=== PATIENT | female | born 1970 ===

== ENCOUNTER 2017-02-03 15:53 | Emergency (ER) | payer MEDICARE, OTHER ==
[2017-02-03 16:03] VITALS: BP 97/67; PULSE 75; RESP 18; TEMP 98.5; O2SAT 96
--- NOTE | 2017-02-03 17:01 | ED PDOC ---
Upper Extremity Pain/Injury Time Seen by Provider: 02/03/17 16:13 Chief Complaint (Nursing): Upper Extremity Problem/Injury Chief Complaint (Provider): Right hand pain History Per: Patient History/Exam Limitations: no limitations Onset/Duration Of Symptoms: Days (3) Current Symptoms Are (Timing): Still Present Quality: "Pain" Additional History Per: Patient Additional Complaint(s): The patient is a 46yo female, presents to the ED for evaluation of right hand pain since 3 days ago. Pt reports she was lifting grocery bags and felt some pain - she reports noticing some swelling, mostly on her right 3rd digit with difficulty in making a fist. She denies any numbness or tingling and offers no additional medical complaints. Past Medical History Reviewed: Historical Data, Nursing Documentation, Vital Signs Vital Signs: Last Vital Signs Temp 98.5 F 02/03/17 16:00 Pulse 75 02/03/17 16:00 Resp 18 02/03/17 16:00 BP 97/67 L 02/03/17 16:00 Pulse Ox 96 02/03/17 16:00 - Medical History PMH: Asthma, Back Problems, Bipolar Disorder (not on medications), Bronchitis, Migraine Denies: Chronic Kidney Disease - Surgical History Surgical History: Tonsillectomy - Family History Family History: States: Unknown Family Hx - Social History Current smoker - smoking cessation education provided: No Alcohol: None Drugs: Denies - Immunization History Hx Tetanus Toxoid Vaccination: No Hx Influenza Vaccination: No Hx Pneumococcal Vaccination: No - Home Medications Home Medications: Ambulatory Orders Medication Instructions Recorded Ascorbic Acid [Vitamin C W/Adwoa 1 tab PO DAILY 09/04/14 Hips] Cholecalciferol/Docosahexaen1 1 cap PO DAILY 09/04/14 [Vitamin-D [place]-3] Cyanocobalamin [Vitamin B12] 5,000 mcg PO DAILY 09/04/14 Feverfew 1 cap PO TID PRN 09/04/14 Ibuprofen [Motrin Tab] 800 mg PO Q8H PRN 09/04/14 Multivitamin with Minerals 1 tab PO DAILY 09/04/14 [Multi-Vitamin W/Minerals] Valerian Root 1 cap PO HS PRN 09/04/14 Vitamin E 1 tab PO DAILY 09/04/14 Albuterol Sulfate [Albuterol 6 ml IH Q4H #100 jamil 03/14/15 Sulfate 2.5mg/3 ml 0.083%] Famotidine [Pepcid] 20 mg PO HS #20 tab 10/24/14 Methylprednisolone [Medrol Dose 4 mg PO DAILY #21 mg 10/24/14 Pack (21 tabs)] Tramadol HCl [Ultram] 1 tab PO Q6 PRN #15 tab 11/19/14 oxyCODONE/Acetaminophen [Percocet 1 tab PO Q6H PRN #20 tab 02/12/15 5/325 mg Tab] Oxycodone HCl/Acetaminophen 1 tab PO Q6 PRN #12 tab 12/14/15 [Percocet 325 mg-5 mg] Metaxalone [Skelaxin] 800 mg PO TID PRN #10 tablet 12/15/15 Albuterol HFA [Ventolin HFA 90 1 - 2 puff IH Q6 PRN #1 inhaler 05/12/16 mcg/actuation (8 g)] Azithromycin [Zithromax] 250 mg PO QAM #1 pkg 05/12/16 Methylprednisolone [Medrol Dosepak] 4 mg PO ASDIR #1 pkg 05/12/16 Benzonatate [Tessalon Perle] 100 mg PO DAILY #15 capsule 10/08/16 Oseltamivir Phosphate [Tamiflu] 75 mg PO BID 5 Days 10/08/16 predniSONE [predniSONE Tab] 60 mg PO DAILY #9 tab 10/08/16 Tramadol HCl [Ultram] 50 mg PO Q8 #12 tab 02/03/17 - Allergies Allergies/Adverse Reactions: Allergies Allergy/AdvReac Type Severity Reaction Status Date / Time Bleach (Sodium Hypochlorite) Allergy SHORTNESS Verified 02/03/17 16:00 OF BREATH cat dander Allergy SHORTNESS Verified 02/03/17 16:00 OF BREATH dog dander Allergy SHORTNESS Verified 02/03/17 16:00 OF BREATH Gain soap Allergy SHORTNESS Uncoded 06/26/16 20:24 OF BREATH polyurethane Allergy SHORTNESS Uncoded 12/15/15 09:32 OF BREATH seasonal Allergy SHORTNESS Uncoded 12/15/15 09:32 OF BREATH Review of Systems ROS Statement: Except As Marked, All Systems Reviewed And Found Negative Musculoskeletal: Positive for: Hand Pain (right) Neurological: Negative for: Weakness, Numbness Physical Exam - Reviewed Nursing Documentation Reviewed: Yes Vital Signs Reviewed: Yes - Physical Exam Appears: Positive for: Well, Non-toxic, No Acute Distress Head Exam: Positive for: ATRAUMATIC, NORMAL INSPECTION, NORMOCEPHALIC Skin: Positive for: Normal Color Eye Exam: Positive for: Normal appearance Cardiovascular/Chest: Positive for: Regular Rate, Rhythm Respiratory: Negative for: Respiratory Distress Extremity: Positive for: Normal ROM, Tenderness (tenderness noted to 3rd MCP), Capillary Refill (< 2 seconds), Swelling (swelling noted to 3rd MCP) Neurologic/Psych: Positive for: Alert, Oriented. Negative for: Motor/Sensory Deficits - ECG O2 Sat by Pulse Oximetry: 96 (RA) Pulse Ox Interpretation: Normal Medical Decision Making Medical Decision Making: Time: 1638 Impression: Right hand injury r/o fracture Plan: -- XR Right hand Time: 1700 XR shows fracture on 3rd and 4th MCP. Pt to be given pain medications and d/c home with instructions to follow up with a hand surgeon. Scribe Attestation: Documented by Vane Andrews acting as a scribe for LES Sheriff Provider Attestation: All medical record entries made by the Scribe were at my direction and personally dictated by me. I have reviewed the chart and agree that the record accurately reflects my personal performance of the history, physical exam, medical decision making, and the department course for this patient. I have also personally directed, reviewed, and agree with the discharge instructions and disposition. Disposition - Clinical Impression Clinical Impression: Finger fracture - Patient ED Disposition Is Patient to be Admitted: No - Disposition Referrals: Thomas August MD [Medical Doctor] - Disposition: Routine/Home Disposition Time: 12:32 Condition: STABLE Prescriptions: Tramadol HCl [Ultram] 50 mg PO Q8 #12 tab Instructions: Finger Fracture (ED) Forms: [facility] ED School/Work Excuse
--- NOTE | 2017-02-03 17:50 | RAD ---
PROCEDURE: Right Hand Radiographs. HISTORY: trauma attn fith digit COMPARISON: None. FINDINGS: BONES: Normal. No fracture. JOINTS: Normal. No osteoarthritic changes. SOFT TISSUES: Normal. OTHER FINDINGS: None. IMPRESSION: Normal right hand radiographs. If symptoms persist, recommend followup radiographs in 5-10 days as most fractures should become radiographically evident in this timeframe
== END 2017-02-03 17:07 | disposition home or self-care (01) ==
LOC: H.ER 15:53
DX: S62.602A Fracture of unspecified phalanx of right middle finger, initial encounter for closed fracture (principal); X50.9XXA Other and unspecified overexertion or strenuous movements or postures, initial encounter; Y92.89 Other specified places as the place of occurrence of the external cause; F31.9 Bipolar disorder, unspecified; J45.909 Unspecified asthma, uncomplicated

== ENCOUNTER 2018-01-22 00:20 | Emergency (ER) | payer OTHER ==
[2018-01-22 01:21] VITALS: O2SAT 98
--- NOTE | 2018-01-22 01:29 | ED PDOC ---
HPI: Abdomen Time Seen by Provider: 01/22/18 00:59 Chief Complaint (Nursing): Abdominal Pain Chief Complaint (Provider): Abdominal Pain History Per: Patient History/Exam Limitations: no limitations Onset/Duration Of Symptoms: Days (x2) Outside of [place] travel?: No Current Symptoms Are (Timing): Still Present Location Of Pain/Discomfort: LUQ, LLQ Associated Symptoms: Chills. denies: Fever, Nausea, Vomiting, Diarrhea Additional Complaint(s): 47 year old female presents to ED with complaints of left-sided abdominal pain x2 days and has a past medical history of arthritis and diverticular disease. Patient notes speaking to GI specialist, who advised taking an antibiotic the patient had on hand and noted that he would see the patient this morning. Patient notes presenting to the ED after pain progressively worsened. (+) chills , (-) fever, nausea, vomiting, or diarrhea. PCP: Bam Greene GI: [facility] Past Medical History Reviewed: Historical Data, Nursing Documentation, Vital Signs Vital Signs: Last Vital Signs Temp 98.7 F 01/22/18 01:20 Pulse 82 01/22/18 01:20 Resp 20 01/22/18 01:20 BP 130/84 01/22/18 01:20 Pulse Ox 98 01/22/18 03:23 - Medical History PMH: Arthritis, Asthma, Back Problems, Bipolar Disorder (not on medications), Bronchitis, Diverticulitis, Migraine Denies: Chronic Kidney Disease - Surgical History Surgical History: Tonsillectomy Denies: No Surg Hx Other surgeries: radical hysterectomy, right knee construction, right foot surgery - Family History Family History: States: Unknown Family Hx - Social History Current smoker - smoking cessation education provided: No Ex-Smoker (has not smoked in the last 12 months): No Alcohol: None Drugs: Denies - Immunization History Hx Tetanus Toxoid Vaccination: No Hx Influenza Vaccination: No Hx Pneumococcal Vaccination: No - Home Medications Home Medications: Ambulatory Orders Medication Instructions Recorded Ascorbic Acid [Vitamin C W/Adwoa 1 tab PO DAILY 09/04/14 Hips] Cholecalciferol/Docosahexaen1 1 cap PO DAILY 09/04/14 [Vitamin-D [place]-3] Cyanocobalamin [Vitamin B12] 5,000 mcg PO DAILY 09/04/14 Feverfew 1 cap PO TID PRN 09/04/14 Ibuprofen [Motrin Tab] 800 mg PO Q8H PRN 09/04/14 Multivitamin with Minerals 1 tab PO DAILY 09/04/14 [Multi-Vitamin W/Minerals] Valerian Root 1 cap PO HS PRN 09/04/14 Vitamin E 1 tab PO DAILY 09/04/14 Albuterol Sulfate [Albuterol 6 ml IH Q4H #100 jamil 10/24/14 Sulfate 2.5mg/3 ml 0.083%] Famotidine [Pepcid] 20 mg PO HS #20 tab 10/24/14 Methylprednisolone [Medrol Dose 4 mg PO DAILY #21 mg 10/24/14 Pack (21 tabs)] Tramadol HCl [Ultram] 1 tab PO Q6 PRN #15 tab 11/19/14 oxyCODONE/Acetaminophen [Percocet 1 tab PO Q6H PRN #20 tab 02/12/15 5/325 mg Tab] Oxycodone HCl/Acetaminophen 1 tab PO Q6 PRN #12 tab 12/14/15 [Percocet 325 mg-5 mg] Metaxalone [Skelaxin] 800 mg PO TID PRN #10 tablet 12/15/15 Albuterol HFA [Ventolin HFA 90 1 - 2 puff IH Q6 PRN #1 inhaler 05/12/16 mcg/actuation (8 g)] Azithromycin [Zithromax] 250 mg PO QAM #1 pkg 05/12/16 Methylprednisolone [Medrol Dosepak] 4 mg PO ASDIR #1 pkg 05/12/16 Benzonatate [Tessalon Perle] 100 mg PO DAILY #15 capsule 10/08/16 Oseltamivir Phosphate [Tamiflu] 75 mg PO BID 5 Days capsule 10/08/16 predniSONE [predniSONE Tab] 60 mg PO DAILY #9 tab 10/08/16 Tramadol HCl [Ultram] 50 mg PO Q8 #12 tab 02/03/17 Ciprofloxacin/Ciprofloxa HCl 500 mg PO Q12 #14 tab 01/22/18 [Ciprofloxacin] metroNIDAZOLE [Flagyl] 500 mg PO Q12 #14 tab 01/22/18 - Allergies Allergies/Adverse Reactions: Allergies Allergy/AdvReac Type Severity Reaction Status Date / Time Bleach (Sodium Hypochlorite) Allergy SHORTNESS Verified 02/03/17 16:00 OF BREATH cat dander Allergy SHORTNESS Verified 02/03/17 16:00 OF BREATH dog dander Allergy SHORTNESS Verified 02/03/17 16:00 OF BREATH Gain soap Allergy SHORTNESS Uncoded 06/26/16 20:24 OF BREATH polyurethane Allergy SHORTNESS Uncoded 12/15/15 09:32 OF BREATH seasonal Allergy SHORTNESS Uncoded 12/15/15 09:32 OF BREATH Review of Systems ROS Statement: Except As Marked, All Systems Reviewed And Found Negative Constitutional: Positive for: Chills. Negative for: Fever Gastrointestinal: Positive for: Abdominal Pain. Negative for: Nausea, Vomiting , Diarrhea Physical Exam - Reviewed Nursing Documentation Reviewed: Yes Vital Signs Reviewed: Yes - Physical Exam Appears: Positive for: Non-toxic, No Acute Distress Skin: Positive for: Normal Color, Warm, Dry Cardiovascular/Chest: Positive for: Regular Rate, Rhythm. Negative for: Murmur Respiratory: Positive for: Normal Breath Sounds. Negative for: Respiratory Distress Gastrointestinal/Abdominal: Positive for: Soft, Tenderness (mild left-sided abdominal tenderness). Negative for: Normal Exam Back: Positive for: Normal Inspection Extremity: Positive for: Normal ROM. Negative for: Deformity Neurologic/Psych: Positive for: Alert, Oriented. Negative for: Motor/Sensory Deficits - Laboratory Results Result Diagrams: 01/22/18 01:15 01/22/18 01:15 - ECG O2 Sat by Pulse Oximetry: 98 (RA) Pulse Ox Interpretation: Normal Medical Decision Making Medical Decision Makin Initial impression: 47 year old female with left-sided abdominal pain and known diverticuar disease Initial plan: * CTA A/P * Labs * Lipase * UDip * UPreg * Toradol 15mg IVP * UA * Re-eval 0135 Patient notes feeling nauseous * Zofran 4mg IV * Re-eval 0315 CT FINDINGS: Lower thorax: No acute findings. ABDOMEN: Liver: Normal. No mass. Gallbladder and bile ducts: The gallbladder is somewhat contracted with no stones. Pancreas: Normal. No ductal dilation. Spleen: Normal. No splenomegaly. Adrenals: Normal. No mass. Kidneys and ureters: Normal. No hydronephrosis. Stomach and bowel: There is colonic diverticulosis. There is induration in the mid sigmoid which is centered around a specific diverticulum which projects posteriorly and cephalad consistent with a culprit diverticulum. Appendix: Sutures at the cecal tip suggesting prior appendectomy. PELVIS: Bladder: Unremarkable as visualized. Reproductive: Status post hysterectomy. ABDOMEN and PELVIS: Intraperitoneal space: Normal. No free air. No significant fluid collection. Bones/joints: No acute fracture. No dislocation. Soft tissues: Unremarkable. Vasculature: Normal. No abdominal aortic aneurysm. Lymph nodes: Normal. No enlarged lymph nodes. IMPRESSION: 1. Colonic diverticulosis with mild induration in the mid sigmoid centered around a specific diverticulum which projects posteriorly in the low pelvis to the left of midline consistent with mild diverticulitis of a culprit diverticulum which is new since 09/04/2014. 2. Status post hysterectomy. 0345 Upon re-evaluation patient notes improvement in symptoms. Labs reviewed: unremarkable with no clinically significant abnormalities. As patient has a normal WBC count and an appointment later today with GI specialist Dr. Justice (11:00), patient may be discharged after receiving initial IV antibiotics in ED. Dx: diverticulitis Scribe Attestation: Documented by Fatemeh Christian acting as a scribe for Jimbo Kwon MD. Scribe Attestation: All medical record entries made by the Scribe were at my direction and personally dictated by me. I have reviewed the chart and agree that the record accurately reflects my personal performance of the history, physical exam, medical decision making, and the department course for this patient. I have also personally directed, reviewed, and agree with the discharge instructions and disposition. Disposition - Clinical Impression Clinical Impression: Diverticulitis - Patient ED Disposition Is Patient to be Admitted: No - Disposition Referrals: Hector Justice MD [Primary Care Provider] - Disposition: Routine/Home Disposition Time: 03:45 Condition: STABLE Prescriptions: Ciprofloxacin/Ciprofloxa HCl [Ciprofloxacin] 500 mg PO Q12 #14 tab metroNIDAZOLE [Flagyl] 500 mg PO Q12 #14 tab Instructions: Diverticulitis Forms: [employer] (Mongolian)
[2018-01-22 01:40] LABS: BASO % 0.6 % (0.0-2.0); EOS # 0.4 K/uL (0.0-0.7); EOS % 4.3 % (0.0-4.0); LYMPH # 2.6 K/uL (1.0-4.3); LYMPH % 30.8 % (20.0-40.0); MEAN CELL VOLUME 94.4 fl (81.0-99.0); MEAN CORPUSCULAR HEMOGLOBIN 32.4 pg (27.0-31.0); MEAN CORPUSCULAR HGB CONC 34.3 g/dL (33.0-37.0); MEAN PLATELET VOLUME 10.4 fl (7.2-11.7); MONO # 0.4 K/uL (0.0-0.8); MONO % 5.1 % (0.0-10.0); NEUT # 5.1 K/uL (1.8-7.0); NEUT % 59.2 % (50.0-75.0); NRBC % 0.1 % (0.0-0.0); RBC 4.63 Mil/uL (3.80-5.20); RED CELL DISTRIBUTION WIDTH 13.2 % (11.5-14.5); WHITE BLOOD COUNT 8.6 K/uL (4.8-10.8)
[2018-01-22 01:41] LABS: SQUAMOUS EPITHIAL < 1 /hpf (0-5); URINE BACTERIA RARE (<OCC); URINE BILIRUBIN NEGATIVE (NEGATIVE); URINE BLOOD NEGATIVE (NEGATIVE); URINE CLARITY CLEAR (Clear); URINE COLOR COLORLESS (YELLOW); URINE GLUCOSE (UA) NEG (Normal); URINE LEUKOCYTE ESTERASE NEG Leu/uL (Negative); URINE PROTEIN NEGATIVE (NEGATIVE); URINE UROBILINOGEN 0.2-1.0 mg/dL (0.2-1.0)
[2018-01-22 01:48] LABS: ALB/GLOB RATIO 1.4 (1.0-2.1); ALBUMIN 4.3 g/dL (3.5-5.0); ALT/SGPT 40 U/L (9-52); AST/SGOT 28 U/L (14-36); BLOOD UREA NITROGEN 9 mg/dl (7-17); CALCIUM 10.2 mg/dL (8.4-10.2); GFR AFRICAN-AMERICAN > 60; GFR NON-AFRICAN AMERICAN > 60; LIPASE 39 U/L (23-300)
[2018-01-22] MEDS ORDERED: Iohexol 300 100 ML IJ ONE (01:54)
[2018-01-22] MEDS ORDERED: Sodium Chloride 0.9% 50 ML IV ONE (01:54)
[2018-01-22] MEDS ORDERED: metroNIDAZOLE 500mg/100ml NS 100 ML IVPB STA (03:23)
[2018-01-22] MEDS ORDERED: Ciprofloxacin 400mg/200ml D5W 400 MG/200 ML BAG IV STA (03:23)
[2018-01-22] MEDS ORDERED: Ciprofloxacin 400mg/200ml D5W 400 MG/200 ML BAG IVPB ONE (03:28)
[2018-01-22] MEDS ORDERED: metroNIDAZOLE 500mg/100ml NS 100 ML IVPB ONE (04:25)
[2018-01-22 05:49] VITALS: BP 103/61; PULSE 74; RESP 16; TEMP 97.5
--- NOTE | 2018-01-22 09:33 | CT ---
PROCEDURE: CT Abdomen and Pelvis with contrast HISTORY: abd pain; hx diverticular disease COMPARISON: CT scan of the abdomen and pelvis dated 09/04/2014. TECHNIQUE: Contrast dose: 90 mL Omnipaque 300 Radiation dose: Total exam DLP = 567.7 mGy-cm. This CT exam was performed using one or more of the following dose reduction techniques: Automated exposure control, adjustment of the mA and/or kV according to patient size, and/or use of iterative reconstruction technique. FINDINGS: LOWER THORAX: Unremarkable. LIVER: Hepatic steatosis. No gross lesion or ductal dilatation. GALLBLADDER AND BILE DUCTS: Unremarkable. PANCREAS: Unremarkable. No gross lesion or ductal dilatation. SPLEEN: Unremarkable. ADRENALS: Unremarkable. No mass. KIDNEYS AND URETERS: Unremarkable. No hydronephrosis. No solid mass. VASCULATURE: Unremarkable. No aortic aneurysm. BOWEL: Sigmoid diverticulosis with peridiverticular stranding. No obstruction. No gross mural thickening. APPENDIX: Prior appendectomy. PERITONEUM: Unremarkable. No free fluid. No free air. LYMPH NODES: Unremarkable. No enlarged lymph nodes. BLADDER: Unremarkable. REPRODUCTIVE: Prior hysterectomy. BONES: No acute fracture. L5-S1 degenerative changes. OTHER FINDINGS: None. IMPRESSION: Acute sigmoid diverticulitis. No free air or adjacent fluid collection.
== END 2018-01-22 05:48 | disposition home or self-care (01) ==
LOC: H.ER 00:20
DX: K57.32 Diverticulitis of large intestine without perforation or abscess without bleeding (principal); F31.9 Bipolar disorder, unspecified; J45.909 Unspecified asthma, uncomplicated; Z87.891 Personal history of nicotine dependence; Z90.710 Acquired absence of both cervix and uterus
CPT/HCPCS: 74177; 80053; 81003; 81025; 83690; 85025; 87040; 96365; 96367; 96375; 99284; J0744; J1885; J2270; J2405; Q9967

== ENCOUNTER 2018-07-28 22:53 | Emergency (ER) | payer OTHER ==
[2018-07-28] MEDS ORDERED: Sodium Chloride 0.9% 1,000 ML IV STA (23:20)
[2018-07-28 23:59] LABS: BASO % 0.2 % (0.0-2.0); EOS # 0.1 K/uL (0.0-0.7); EOS % 0.5 % (0.0-4.0); HEMOGLOBIN 13.6 g/dL (12.0-16.0); LYMPH # 1.5 K/uL (1.0-4.3); LYMPH % 12.6 % (20.0-40.0); MEAN CELL VOLUME 93.1 fl (81.0-99.0); MEAN CORPUSCULAR HGB CONC 33.3 g/dL (33.0-37.0); MEAN PLATELET VOLUME 10.1 fl (7.2-11.7); MONO # 0.6 K/uL (0.0-0.8); MONO % 5.5 % (0.0-10.0); NEUT # 9.5 K/uL (1.8-7.0); NEUT % 81.2 % (50.0-75.0); NRBC % 0.1 % (0.0-0.0); RBC 4.37 Mil/uL (3.80-5.20); RED CELL DISTRIBUTION WIDTH 13.1 % (11.5-14.5); WHITE BLOOD COUNT 11.7 K/uL (4.8-10.8)
[2018-07-29 00:02] LABS: SQUAMOUS EPITHIAL < 1 /hpf (0-5); URINE BACTERIA RARE (<OCC); URINE BILIRUBIN NEGATIVE (NEGATIVE); URINE BLOOD NEGATIVE (NEGATIVE); URINE CLARITY SLIGHTY-CLOUDY (Clear); URINE COLOR YELLOW (YELLOW); URINE GLUCOSE (UA) NEG (NEGATIVE); URINE LEUKOCYTE ESTERASE NEG Leu/uL (Negative); URINE PROTEIN NEGATIVE (NEGATIVE); URINE UROBILINOGEN 0.2-1.0 mg/dL (0.2-1.0)
--- NOTE | 2018-07-29 00:03 | ED PDOC ---
HPI: Abdomen Time Seen by Provider: 07/28/18 23:06 Chief Complaint (Nursing): Abdominal Pain Chief Complaint (Provider): Abdominal Pain History Per: Patient History/Exam Limitations: no limitations Onset/Duration Of Symptoms: Days (x3) Current Symptoms Are (Timing): Still Present Location Of Pain/Discomfort: LLQ Associated Symptoms: Constipation. denies: Fever, Diarrhea Additional Complaint(s): 47 year old female, with a past medical history of diverticulosis, presents to the ED complaining of left lower quadrant pain which she developed on Sunday. Patient reports that she also felt constipated and also vomited. She contacted her GI doctor, Dr. Lynne, who advised her to use fleet enema. Patient, however, felt uncomfortable doing it. Last bowel movement was today which was small and hard. Denies melena, hematochezia, fever, diarrhea, or hematemesis. Past Medical History Reviewed: Historical Data, Nursing Documentation, Vital Signs Vital Signs: Last Vital Signs Temp 98.9 F 07/28/18 22:58 Pulse 97 H 07/28/18 22:58 Resp 16 07/28/18 22:58 BP 154/78 H 07/28/18 22:58 Pulse Ox 97 07/28/18 22:58 - Medical History PMH: Arthritis, Asthma, Back Problems, Bipolar Disorder (not on medications), Bronchitis, Diverticulitis (Diverticulosis), Migraine Denies: Chronic Kidney Disease - Surgical History Surgical History: Tonsillectomy - Family History Family History: States: Unknown Family Hx - Immunization History Hx Tetanus Toxoid Vaccination: No Hx Influenza Vaccination: No Hx Pneumococcal Vaccination: No - Home Medications Home Medications: Ambulatory Orders Medication Instructions Recorded Ascorbic Acid [Vitamin C W/Adwoa 1 tab PO DAILY 09/04/14 Hips] Cholecalciferol/Docosahexaen1 1 cap PO DAILY 09/04/14 [Vitamin-D [place]-3] Cyanocobalamin [Vitamin B12] 5,000 mcg PO DAILY 09/04/14 Ibuprofen [Motrin Tab] 800 mg PO Q8H PRN 09/04/14 Multivitamin with Minerals 1 tab PO DAILY 09/04/14 [Multi-Vitamin W/Minerals] RX: Feverfew 1 cap PO TID PRN 09/04/14 RX: Valerian Root 1 cap PO HS PRN 09/04/14 RX: Vitamin E 1 tab PO DAILY 09/04/14 Albuterol Sulfate [Albuterol 6 ml IH Q4H #100 jamil 10/24/14 Sulfate 2.5mg/3 ml 0.083%] Famotidine [Pepcid] 20 mg PO HS #20 tab 10/24/14 Methylprednisolone [Medrol Dose 4 mg PO DAILY #21 mg 10/24/14 Pack (21 tabs)] Tramadol HCl [Ultram] 1 tab PO Q6 PRN #15 tab 11/19/14 oxyCODONE/Acetaminophen [Percocet 1 tab PO Q6H PRN #20 tab 02/12/15 5/325 mg Tab] Oxycodone HCl/Acetaminophen 1 tab PO Q6 PRN #12 tab 12/14/15 [Percocet 325 mg-5 mg] Metaxalone [Skelaxin] 800 mg PO TID PRN #10 tablet 12/15/15 Azithromycin [Zithromax] 250 mg PO QAM #1 pkg 05/12/16 Methylprednisolone [Medrol Dosepak] 4 mg PO ASDIR #1 pkg 05/12/16 RX: Albuterol HFA [Ventolin HFA 90 1 - 2 puff IH Q6 PRN #1 inhaler 05/12/16 mcg/actuation (8 g)] Benzonatate [Tessalon Perle] 100 mg PO DAILY #15 capsule 10/08/16 Oseltamivir Phosphate [Tamiflu] 75 mg PO BID 5 Days capsule 10/08/16 RX: predniSONE [predniSONE Tab] 60 mg PO DAILY #9 tab 10/08/16 Tramadol HCl [Ultram] 50 mg PO Q8 #12 tab 02/03/17 Ciprofloxacin/Ciprofloxa HCl 500 mg PO Q12 #14 tab 01/22/18 [Ciprofloxacin] metroNIDAZOLE [Flagyl] 500 mg PO Q12 #14 tab 01/22/18 Dicyclomine [Bentyl] 1 tab PO TID PRN #10 tab 07/29/18 RX: Ciprofloxacin [Cipro] 500 mg PO BID #14 tab 07/29/18 metroNIDAZOLE [Flagyl] 500 mg PO TID #21 tab 07/29/18 - Allergies Allergies/Adverse Reactions: Allergies Allergy/AdvReac Type Severity Reaction Status Date / Time Bleach (Sodium Hypochlorite) Allergy SHORTNESS Verified 02/03/17 16:00 OF BREATH cat dander Allergy SHORTNESS Verified 02/03/17 16:00 OF BREATH dog dander Allergy SHORTNESS Verified 02/03/17 16:00 OF BREATH Gain soap Allergy SHORTNESS Uncoded 06/26/16 20:24 OF BREATH polyurethane Allergy SHORTNESS Uncoded 12/15/15 09:32 OF BREATH seasonal Allergy SHORTNESS Uncoded 12/15/15 09:32 OF BREATH Review of Systems ROS Statement: Except As Marked, All Systems Reviewed And Found Negative Constitutional: Negative for: Fever Gastrointestinal: Positive for: Vomiting, Abdominal Pain (LLQ), Constipation. Negative for: Diarrhea, Melena, Hematochezia, Hematemesis Physical Exam - Reviewed Nursing Documentation Reviewed: Yes Vital Signs Reviewed: Yes - Physical Exam Appears: Positive for: In Acute Distress (Mild painful distress) Head Exam: Positive for: ATRAUMATIC, NORMOCEPHALIC Skin: Positive for: Normal Color, Warm, Dry Eye Exam: Positive for: Normal appearance Neck: Positive for: Normal, Painless ROM Cardiovascular/Chest: Positive for: Regular Rate, Rhythm Respiratory: Positive for: Normal Breath Sounds. Negative for: Wheezing, Respiratory Distress Gastrointestinal/Abdominal: Positive for: Tenderness (minimal LLQ tenderness) Extremity: Positive for: Normal ROM Neurologic/Psych: Positive for: Alert, Oriented. Negative for: Motor/Sensory Deficits - Laboratory Results Result Diagrams: 07/28/18 23:35 07/28/18 23:35 - ECG O2 Sat by Pulse Oximetry: 97 (RA) Pulse Ox Interpretation: Normal Medical Decision Making Medical Decision Making: Initial Plan: --CMP --Lipase stat --ED urine --CBC --X-ray obstructive series --Sodium chloride 1000mL IV --Toradol 15mg IV --Zofran 4mg IV --Urinalysis 00:37 X-ray obstructive series Findings: Mild amount of fecal residue in the large bowel. Normal visualized lung bases. There is an otherwise unremarkable bowel gas pattern. There is no demonstrated free abdominal air. Normal visualized liver. Normal visualized spleen. Normal visualized kidneys. The soft tissue structures of the pelvis are unremarkable. Normal visualized osseous structures. The lungs are expanded. There is no demonstrated parenchymal abnormality. There is no demonstrated pleural abnormality. Normal heart and pericardium. Normal mediastinum and joshua. Normal visualized pulmonary arteries. Normal visualized aortic arch and descending thoracic aorta. Normal visualized thoracic spine. Normal visualized ribs, clavicles, and shoulders. There is no demonstrated abnormality of the visualized soft tissue structures of the upper abdomen. Impression: Mild amount of residue in the large bowels. 0045 On re-evaluation, pt. reports pain has improved but still present. Pt. still appears to be in painful distress. Pt. informed of plan and agrees with care. CT abd/pelvis W/ IV contrast, morphine 4mg IV ordered. 02:21 CT abd/pelvis COMMENTS: Interval appearance of diffuse acute sigmoid diverticulitis. Associated perisigmoid phlegmonous changes. Interval appearance of mild diffuse thickening of the bladder. The liver is enlarged with decreased attenuation without mass or defect. There is no intra or extrahepatic biliary ductal dilatation. The spleen is normal. The gallbladder is within normal limits. The pancreas is of normal contour and attenuation characteristics. There is no evidence of adrenal mass. Both kidneys demonstrate prompt and equal nephrograms. The kidneys are normal in size, shape and configuration. There is no evidence of renal or ureteral mass. No renal or ureteral calculi are identified. There is no hydroureter or hydronephrosis. No evidence for appendicitis. No evidence for small or large bowel obstruction. There is no evidence of abdominal ascites or lymphadenopathy. There is no evidence of intrinsic or extrinsic bladder mass. There is no pelvic ascites or lymphadenopathy. Images of the lung bases show no evidence of pleural or parenchymal mass. There are no pleural effusions. The bony structures are free of lytic or blastic lesions. IMPRESSION: Interval appearance of diffuse acute sigmoid diverticulitis. Associated perisigmoid phlegmonous changes. No perforation or abscess formation. Interval appearance of mild diffuse thickening of the bladder. Pt. informed of results. Agrees with plan and care. States she has an appointment with Dr. Lynne on Sunday. Advised to f/u with Dr. Lynne as schedule d but is to return to ED immediately if symptoms worsen. Cipro IV, flagyl IV, blood culture x 2 ordered. Scribe Attestation: Documented by Dell Navarro acting as a scribe for Kory SALDANA. Provider Scribe Attestation: All medical record entries made by the Scribe were at my direction and personally dictated by me. I have reviewed the chart and agree that the record accurately reflects my personal performance of the history, physical exam, medical decision making, and the department course for this patient. I have also personally directed, reviewed, and agree with the discharge instructions and disposition. Disposition - Clinical Impression Clinical Impression: Diverticulitis - Patient ED Disposition Is Patient to be Admitted: No - Disposition Disposition: Routine/Home Disposition Time: 02:26 Condition: IMPROVED Additional Instructions: FOLLOW UP WITH DR. LYNNE FOR FURTHER EVALUATION RETURN TO ED IMMEDIATELY IF SYMPTOMS WORSEN SIX[place] S[place], thank you for letting us take care of you today. Your provider was Porfirio Tomlin MD and you were treated for VOMITING. The emergency medical care you received today was directed at your acute symptoms. If you were prescribed any medication, please fill it and take as directed. It may take several days for your symptoms to resolve. Return to the Emergency Department if your symptoms worsen, do not improve, or if you have any other problems. Please contact your doctor or call one of the physicians/clinics you have been referred to that are listed on the Patient Visit Information form that is included in your discharge packet. Bring any paperwork you were given at discharge with you along with any medications you are taking to your follow up visit. Our treatment cannot replace ongoing medical care by a primary care provider outside of the emergency department. Thank you for allowing the [facility] team to be part of your care today. If you had an X-Ray or CT scan: A Radiologist will review the ED reading if any change in treatment is needed we will contact you. If you had a blood, urine, or wound culture: It will take several days for the results, if any change in treatment is needed we will contact you. If you had an STI test: It will take 48 hours for the results. Please call after 1 week if you have not heard back. Prescriptions: RX: Ciprofloxacin [Cipro] 500 mg PO BID #14 tab Dicyclomine [Bentyl] 1 tab PO TID PRN #10 tab PRN Reason: abdominal pain metroNIDAZOLE [Flagyl] 500 mg PO TID #21 tab Instructions: Diverticulitis (DC) Forms: [facility] (Portuguese) Print Language: OCCITAN
[2018-07-29 00:05] LABS: ALB/GLOB RATIO 1.4 (1.0-2.1); ALBUMIN 4.2 g/dL (3.5-5.0); ALT/SGPT 35 U/L (9-52); AST/SGOT 21 U/L (14-36); BLOOD UREA NITROGEN 6 mg/dl (7-17); CALCIUM 9.2 mg/dL (8.4-10.2); GFR NON-AFRICAN AMERICAN > 60; LIPASE 39 U/L (23-300)
[2018-07-29] MEDS ORDERED: Sodium Chloride 0.9% 50 ML IV ONE (01:12)
[2018-07-29] MEDS ORDERED: Iohexol 300 100 ML IJ ONE (01:12)
[2018-07-29] MEDS ORDERED: metroNIDAZOLE 500mg/100ml NS 100 ML IVPB STA (02:23)
[2018-07-29] MEDS ORDERED: Ciprofloxacin 400mg/200ml D5W 400 MG/200 ML BAG IVPB STA (02:23)
[2018-07-29] MEDS ORDERED: metroNIDAZOLE 500mg/100ml NS 100 ML IVPB ONE (02:39)
[2018-07-29] MEDS ORDERED: Ciprofloxacin 400mg/200ml D5W 400 MG/200 ML BAG IVPB ONE (02:40)
[2018-07-29] MEDS ORDERED: Sodium Chloride 0.9% 1,000 ML IV STA (02:50)
[2018-07-29 05:18] VITALS: BP 106/52; PULSE 82; RESP 18; TEMP 98.4
[2018-07-29 05:38] VITALS: O2SAT 97
--- NOTE | 2018-07-29 10:03 | CT ---
Date of service: 07/29/2018 PROCEDURE: CT Abdomen and Pelvis without intravenous contrast HISTORY: LLQ abd pain COMPARISON: 01/22/2018 TECHNIQUE: Technique. Contrast dose: Radiation dose: Total exam DLP = 409.23 mGy-cm. This CT exam was performed using one or more of the following dose reduction techniques: Automated exposure control, adjustment of the mA and/or kV according to patient size, and/or use of iterative reconstruction technique. FINDINGS: LOWER THORAX: Unremarkable. LIVER: Unremarkable. No gross lesion or ductal dilatation. GALLBLADDER AND BILE DUCTS: Unremarkable. PANCREAS: Unremarkable. No gross lesion or ductal dilatation. SPLEEN: Unremarkable. ADRENALS: Unremarkable. No mass. KIDNEYS AND URETERS: Unremarkable. No hydronephrosis. No solid mass. VASCULATURE: Unremarkable. No aortic aneurysm. No aortic atherosclerotic calcification or mural plaque present. BOWEL: Thickening of the sigmoid colon with pericolonic fat infiltration and colonic diverticula consistent with acute sigmoid colon diverticulitis. 13 millimeter fluid collection in the pericolonic fat may represent an evolving abscess. APPENDIX: Unremarkable. Normal appendix. PERITONEUM: Unremarkable. No free fluid. No free air. LYMPH NODES: Unremarkable. No enlarged lymph nodes. BLADDER: Unremarkable. REPRODUCTIVE: Unremarkable. BONES: No acute fracture. OTHER FINDINGS: None. IMPRESSION: Thickening of the sigmoid colon with pericolonic fat infiltration and colonic diverticula consistent with acute sigmoid colon diverticulitis. 13 millimeter fluid collection in the pericolonic fat may represent an evolving abscess.
--- NOTE | 2018-07-29 11:10 | RAD ---
Date of service: 07/28/2018 PROCEDURE: Radiographs of the chest and abdomen (obstructive series) HISTORY: constipation COMPARISON: CT abdomen and pelvis from 07/29/2018 TECHNIQUE: AP radiograph of the chest, with upright and supine radiographs of the abdomen. FINDINGS: CHEST: Lungs: The lungs are hyperinflated and there is peribronchial thickening with chronic changes in both lungs. Cardiovascular: Normal size heart. No pulmonary vascular congestion. No aortic atherosclerotic calcification present Pleura: No pleural fluid. No pneumothorax. Other findings: None. ABDOMEN AND PELVIS: Bowel: There is moderate amount of stool in the colon. The bowel gas pattern is nonspecific. No evidence of mechanical obstruction. Free air: None. Bones: Unremarkable. Other findings: None. IMPRESSION: Constipation. Nonobstructive bowel gas pattern. COPD. No active pulmonary disease.
== END 2018-07-29 05:18 | disposition home or self-care (01) ==
LOC: H.ER 22:53
DX: K57.32 Diverticulitis of large intestine without perforation or abscess without bleeding (principal); K59.00 Constipation, unspecified
CPT/HCPCS: 74022; 74177; 80053; 81003; 83690; 85025; 87040; 96361; 96365; 96367; 96375; 96376; 99284; J0744; J1885; J2270; J2405; J7030; Q9967

== ENCOUNTER 2018-09-07 16:01 | Emergency (ER) | payer OTHER ==
[2018-09-07 16:09] VITALS: BP 141/79; PULSE 89; RESP 16; TEMP 98.6; O2SAT 97
[2018-09-07] MEDS ORDERED: Tdap Vaccine 0.5 ml Vial (10-64 yrs) IM ONE (16:16)
--- NOTE | 2018-09-07 16:32 | ED PDOC ---
Upper Extremity Pain/Injury Time Seen by Provider: 09/07/18 16:12 Chief Complaint (Nursing): Finger,Hand,&Wrist Chief Complaint (Provider): Left Hand Injury History Per: Patient History/Exam Limitations: no limitations Onset/Duration Of Symptoms: Mins (just prior to arrival) Current Symptoms Are (Timing): Still Present Additional Complaint(s): 48 year old female presents to the ED for evaluation of a left hand injury. Patient reports that just prior to arrival, a window slammed on her left index finger, injuring it. Tetanus up to date Right hand dominant PMD: Bam [facility] Past Medical History Reviewed: Historical Data, Nursing Documentation, Vital Signs Vital Signs: Last Vital Signs Temp 98.6 F 09/07/18 16:06 Pulse 89 09/07/18 16:06 Resp 16 09/07/18 16:06 BP 141/79 09/07/18 16:06 Pulse Ox 97 09/07/18 16:06 - Medical History PMH: Arthritis, Asthma, Back Problems, Bipolar Disorder (not on medications), Bronchitis, Diverticulitis (Diverticulosis), Migraine Denies: Chronic Kidney Disease - Surgical History Surgical History: Tonsillectomy - Family History Family History: States: Unknown Family Hx - Immunization History Hx Tetanus Toxoid Vaccination: No Hx Influenza Vaccination: No Hx Pneumococcal Vaccination: No - Home Medications Home Medications: Ambulatory Orders Medication Instructions Recorded Ascorbic Acid [Vitamin C W/Adwoa 1 tab PO DAILY 09/04/14 Hips] Cholecalciferol/Docosahexaen1 1 cap PO DAILY 09/04/14 [Vitamin-D [place]-3] Cyanocobalamin [Vitamin B12] 5,000 mcg PO DAILY 09/04/14 Feverfew 1 cap PO TID PRN 09/04/14 Ibuprofen [Motrin Tab] 800 mg PO Q8H PRN 09/04/14 Multivitamin with Minerals 1 tab PO DAILY 09/04/14 [Multi-Vitamin W/Minerals] Valerian Root 1 cap PO HS PRN 09/04/14 Vitamin E 1 tab PO DAILY 09/04/14 Albuterol Sulfate [Albuterol 6 ml IH Q4H #100 jamil 10/24/14 Sulfate 2.5mg/3 ml 0.083%] Famotidine [Pepcid] 20 mg PO HS #20 tab 03/14/15 Methylprednisolone [Medrol Dose 4 mg PO DAILY #21 mg 10/24/14 Pack (21 tabs)] Tramadol HCl [Ultram] 1 tab PO Q6 PRN #15 tab 11/19/14 oxyCODONE/Acetaminophen [Percocet 1 tab PO Q6H PRN #20 tab 02/12/15 5/325 mg Tab] Oxycodone HCl/Acetaminophen 1 tab PO Q6 PRN #12 tab 12/14/15 [Percocet 325 mg-5 mg] Metaxalone [Skelaxin] 800 mg PO TID PRN #10 tablet 12/15/15 Albuterol HFA [Ventolin HFA 90 1 - 2 puff IH Q6 PRN #1 inhaler 05/12/16 mcg/actuation (8 g)] Azithromycin [Zithromax] 250 mg PO QAM #1 pkg 05/12/16 Methylprednisolone [Medrol Dosepak] 4 mg PO ASDIR #1 pkg 05/12/16 Benzonatate [Tessalon Perle] 100 mg PO DAILY #15 capsule 10/08/16 Oseltamivir Phosphate [Tamiflu] 75 mg PO BID 5 Days capsule 10/08/16 predniSONE [predniSONE Tab] 60 mg PO DAILY #9 tab 10/08/16 Tramadol HCl [Ultram] 50 mg PO Q8 #12 tab 02/03/17 Ciprofloxacin/Ciprofloxa HCl 500 mg PO Q12 #14 tab 01/22/18 [Ciprofloxacin] metroNIDAZOLE [Flagyl] 500 mg PO Q12 #14 tab 01/22/18 Ciprofloxacin [Cipro] 500 mg PO BID #14 tab 07/29/18 Dicyclomine [Bentyl] 1 tab PO TID PRN #10 tab 07/29/18 metroNIDAZOLE [Flagyl] 500 mg PO TID #21 tab 07/29/18 - Allergies Allergies/Adverse Reactions: Allergies Allergy/AdvReac Type Severity Reaction Status Date / Time Bleach (Sodium Hypochlorite) Allergy SHORTNESS Verified 09/07/18 16:06 OF BREATH cat dander Allergy SHORTNESS Verified 09/07/18 16:06 OF BREATH dog dander Allergy SHORTNESS Verified 09/07/18 16:06 OF BREATH Gain soap Allergy SHORTNESS Uncoded 09/07/18 16:06 OF BREATH polyurethane Allergy SHORTNESS Uncoded 09/07/18 16:06 OF BREATH seasonal Allergy SHORTNESS Uncoded 09/07/18 16:06 OF BREATH Review of Systems ROS Statement: Except As Marked, All Systems Reviewed And Found Negative Musculoskeletal: Positive for: Other (left hand index finger injury) Physical Exam - Reviewed Nursing Documentation Reviewed: Yes Vital Signs Reviewed: Yes - Physical Exam Appears: Positive for: No Acute Distress Cardiovascular/Chest: Positive for: Regular Rate, Rhythm Respiratory: Negative for: Respiratory Distress Extremity: Positive for: Normal ROM (of left hand and all digits, able to flex and extend index finger without difficulty), Swelling (moderate to left index finger middle phalanx), Other (mild bleeding noted to left index finger nailbed; 2cm laceration noted to left index finger middle phalanx) Neurologic/Psych: Negative for: Motor/Sensory Deficits - ECG O2 Sat by Pulse Oximetry: 97 (RA) Pulse Ox Interpretation: Normal - Progress ED Course And Treament: xry of hand: no fx Patient currently on antibiotics (amox) for pharyngitis started yesterday. Placed in fingersplint. Medical Decision Making Medical Decision Making: Time: 1614 Initial Impression: left index finger injury Initial Plan: --Left hand XR --Patient refused Tylenol Scribe Attestation: Documented by Danielle Cordova acting as a scribe for Joe Canseco PA-C. Provider Scribe Attestation: All medical record entries made by the Scribe were at my direction and personally dictated by me. I have reviewed the chart and agree that the record accurately reflects my personal performance of the history, physical exam, medical decision making, and the department course for this patient. I have also personally directed, reviewed, and agree with the discharge instructions and disposition. Disposition - Clinical Impression Clinical Impression: Finger laceration - Patient ED Disposition Is Patient to be Admitted: No - Disposition Referrals: Thomas August MD [Medical Doctor] - Disposition: Routine/Home Disposition Time: 17:05 Condition: FAIR Additional Instructions: RETURN IN 7 TO 10 DAYS OR F/U PMD TO REMOVE SUTURES. Instructions: Laceration Repair With Stitches (DC) Procedure: Wound Repair - Time Performed Time Performed: 17:04 - Time Out Time Out: Site verified - Consent Obtained Consent obtained: Verbal - Performed by Performed by: Mid-level Provider - Indications Indication(s):: Laceration - Location Location:: Left, Hand Finger:: Ring Shape:: Linear Dimensions Length cm: 2.0cm Depth:: Epidermis - Anesthetic Technique Anesthetic Technique: Regional block Local/Regional Anesthetic:: Lidocaine 1% - Debris Debris:: None - Irrigated Irrigated with ml of normal saline: 100 - Complexity Complexity:: Simple (one layer) - Wound repair method Sutures:: # (four ), Size (5-0), Type (nylon), Technique (interrupted) - Muscle repiar layer closed with Muscle repair layer closed with:: Tetanus up to date - Patient tolerated procedure Patient Tolerated Procedure:: Well
[2018-09-07] MEDS ORDERED: Lidocaine 1% Inj (20ml) IJ ONE (16:38)
--- NOTE | 2018-09-07 16:41 | RAD ---
PROCEDURE: Left Hand Radiographs. HISTORY: Hand injury. COMPARISON: None. FINDINGS: BONES: Normal. No fracture. JOINTS: Normal. No osteoarthritic changes. SOFT TISSUES: Normal. OTHER FINDINGS: None. IMPRESSION: No evidence of acute displaced fracture nor dislocation. If symptoms persist or occult fracture suspected clinically consider follow-up radiographs in 7-10 days as most fractures should become radiographically evident in this timeframe. Alternately, consider follow-up MRI.
== END 2018-09-07 17:29 | disposition home or self-care (01) ==
LOC: H.ER 16:01
DX: S61.201A Unspecified open wound of left index finger without damage to nail, initial encounter (principal); W22.8XXA Striking against or struck by other objects, initial encounter; Y92.89 Other specified places as the place of occurrence of the external cause